=== PATIENT | female | born 1965 | race Caucasian/White ===

== ENCOUNTER → 2017-11-21 | Emergency (ER) | payer OTHER ==
[~2017-11-21] VITALS: Ht 154.9 cm; Wt 81.2 kg
[~2017-11-21] MED LIST: CEFADROXIL500 MG PO; COZAAR50 MG; KETO10TA2 PO; PERCOCET 5/3251 TAB PO; RECTICARE30 GM TP
== END | disposition home or self-care (01) ==
LOC: ER 11:12
DX: R10.12 Left upper quadrant pain (principal)

== ENCOUNTER → 2023-07-28 06:00 | Outpatient (CLI) | payer OTHER | END | disposition home or self-care (01) | LOC: ADM 07-26 11:15 → LAB 06:00 → ADM 12:00 → CIR.AMB 08-01 11:45 → EDSTATUS 08-01 12:00 → CIR.AMB 08-01 12:00 | PROVIDERS: ATTEND Obstetrics & Gynecology Gynecology | DX: D64.9 Anemia, unspecified (principal); D03.9 Melanoma in situ, unspecified; I10 Essential (primary) hypertension; R07.9 Chest pain, unspecified; N39.0 Urinary tract infection, site not specified; N39.3 Stress incontinence (female) (male); Z20.828 Contact with and (suspected) exposure to other viral communicable diseases ==